=== PATIENT | female | born 1995 | race Caucasian/White ===

== ENCOUNTER 2019-12-20 01:45 | Inpatient (IN) | payer MEDICAID, SELFPAY ==
[2019-12-20] VITALS (98 sets, daily range): BP systolic 0–166; BP diastolic 0–95; PULSE 67–102; RESP 14–19; TEMP 36.6–37.1; O2SAT 94–100; BMI 27.8
[2019-12-20 01:42] LABS: Nitrazine Paper, PH Inconclusive
[2019-12-20 01:42] LABS: Actim Prom Positive
[2019-12-20 02:39] LABS: Basophils % 0.2 %; Eosinophils % 0.4 %; Hematocrit 30.8 % (37.0-47.0); Hemoglobin 9.6 g/dL (11.5-15.3); Lymphocytes # 1.5 10^3/uL (0.8-4.8); Lymphocytes % 16.9 %; Mean Corpuscular HGB Conc 31.2 g/dL (30.0-36.0); Mean Corpuscular Hemoglobin 26.5 pg (28.0-34.0); Mean Corpuscular Volume 85.1 fL (81-99); Monocytes # 0.7 10^3/uL (0.2-0.9); Monocytes % 8.1 %; Neutrophils # 6.57 10^3/uL (1.8-7.7); Neutrophils % 73.3 %; Nucleated Red Blood Cells % 0 %; Platelet Count 162 10^3/cmm (130-400); Red Blood Count 3.62 10^6/uL (4.1-5.3); Red Cell Distribution Width 13.7 % (12.1-15.1)
[2019-12-20 04:06] LABS: Amphetamines Screen Urine Negative (Negative); Barbiturates Screen Urine Negative (Negative); Benzodiazepines Screen Urine Negative (Negative); Cocaine Screen Urine Negative (Negative); Opiate Screen Urine Negative (Negative); PCP Screen Urine Negative (Negative); THC Screen Urine Negative (Negative)
[2019-12-20] MEDS: fentaNYL 50 mcg/mL INJ 2mL IVP ×3 (04:38→08:08)
[2019-12-20] MEDS: miSOPROStol 100 mcg tablet 25 MCG VAGINAL (05:39)
[2019-12-20] MEDS: lactated ringers 1,000 ML 125 ML IV ×2 (06:45→18:25)
--- NOTE | 2019-12-20 08:45 | ANES.PREANE2 ---
Pre-Anesthetic Assessment Pre-Anesthetic Assessment: Height/Weight: Height 1.55 m Weight 66.678 kg Temp Pulse Resp BP Pulse Ox 98.2 F 75 18 115/67 100 12/20/19 01:22 12/20/19 09:42 12/20/19 08:08 12/20/19 09:42 12/20/19 09:22 Preop Diagnosis: IUP Proposed Procedure: epidural Familial anesthetic complications: none Last intake: drinking watqer Social: Social History: No alcohol and No tobacco Exam: Pre-Anes Outpt Exam: alert, oriented x 3, clear to auscultation bilaterally and regular rate & rhythm Airway: Cervical ROM: WNL MP: 2 Dentition: Full Anesthetic Plan: ASA status: 2 Anesthesia: Regional (specify below) Risk of > 500 ml blood loss (7ml/kg in children): No Meds/Allergies Current Medications: Current Medications Generic Name Dose Route Start Last Admin Trade Name Freq PRN Reason Stop Dose Admin Fentanyl 25 - 100 mcg 12/20/19 04:22 12/20/19 08:08 Sublimaze IVP 25 mcg Q1H PRN Administration SEVERE PAIN Lactated Ringer's 1,000 mls @ 125 m ls/hr 12/20/19 02:30 12/20/19 08:15 Lactated Ringers IV 999 mls/hr .Q8H [place] Infusion PFSH Anesthesia Female Reproductive History: : 1 Data Anesthesia CBC & Chem 7: 12/20/19 02:15 Other Labs: Laboratory Results - last 48 hr 12/20/19 12/20/19 12/20/19 01:25 02:00 02:15 WBC 9.0 RBC 3.62 L Hgb 9.6 L Hct 30.8 L MCV 85.1 MCH 26.5 L MCHC 31.2 RDW 13.7 Plt Count 162 MPV 12.0 H Neut % (Auto) 73.3 Lymph % (Auto) 16.9 Robertson % (Auto) 8.1 Eos % (Auto) 0.4 Baso % (Auto) 0.2 Neut # (Auto) 6.57 Lymph # (Auto) 1.5 Robertson # (Auto) 0.7 Eos # (Auto) 0.0 Baso # (Auto) 0.0 Nucleated RBC % (auto) 0 Nucleated RBCs # 0.0 Insulin-like GF I Positive Urine Opiates Screen Negative Ur Barbiturates Screen Negative Ur Phencyclidine Scrn Negative Ur Amphetamines Screen Negative U Benzodiazepines Scrn Negative Urine Cocaine Screen Negative U Marijuana (THC) Screen Negative Cardiac Studies: No Data to Display
[2019-12-20] MEDS: lactated ringers 1,000 ML 999 ML IV (08:50)
--- NOTE | 2019-12-20 09:45 | P.ANES_ITS ---
Anesthesia Procedures Procedure/Date: 12/20/19 Epidural: Time Out Performed: Yes Consents Signed: Procedure Consent, NPO Consent and No Consent Needed Consent: requested by attending/covering physician, from patient, risks and benefits reviewed and patient agrees to proceed Epidural position: sitting Epidural procedure: sterile prep of area, 1% lidocaine to numb the area, 18 g needle, negative for paresthesia passed, neg for paresthesia, test dose given, 1.5% xylocaine 1:200k epi (5 ml (divided doses of 3 ml and 2 ml)), 0.2% Ropivacaine bolus ml (5 ml), placed PCEA , no systemic response, sterile dressing applied, L.U.D. no apparent complications and 0.2% Ropiavacaine @ mls/hr (10) Additional Comments: YAJAIRA at 4.5 cm, threaded to 10 cm.
[2019-12-20] MEDS: dextrose 5%-lactated ringers 1,000 ML 125 ML IV (09:49)
[2019-12-20] MEDS: lactated ringers 1,000 ML 500 ML IV (14:33)
[2019-12-20 17:39] LABS: Coronavirus Lab Test PTC Negative
--- NOTE | 2019-12-20 19:51 | PM.DELIVERY ---
Delivery Note: Date of delivery: December 20, 2019 Pre-Delivery Course: The patient is a 38-week 1 female who presented to the hospital with possible spontaneous rupture of membranes. She had had an unremarkable . She had consistent care. Her blood type is O-. Her GBS status is negative. She was tested with nitrazine and found to be equivocal. She was then tested with an actinPROM and found to be positive. She continued to have contractions. An amniotomy was performed. An epidural was placed. She progressed to complete without difficulty. She is allowed to labor down for over an hour. She then pushed for roughly an hour. Delivery: DELIVERY: The patient progressed to complete without difficulty. She delivered a male with a weight of 7 pounds 0.5 ounces with Apgars of 8, 8. The baby was delivered from the NILE position. The baby's mouth and nose were suctioned at the site of the perineum. The baby was then completely delivered and placed on the mother's abdomen. The cord was then clamped and cut. There was no nuchal cord. There was no meconium. The placenta and 3 vessel cord were delivered intact shortly thereafter. The perineum and vaginal vault were carefully examined. No lacerations were noted. Both the mother and the baby were in stable condition. A&P Assessment and plan (1) 38 weeks gestation of : Anticipate routine care. Status: Acute (2) Spontaneous vaginal delivery: Status: Acute Coding Level of Care Code Acute Transcribing Operator Head for Chg Fwd Diagnoses 38 weeks gestation of Z3A.38 Spontaneous vaginal delivery O80
[2019-12-20] MEDS: lanolin oint 7 gm 1 APPLIC TOPICAL (20:53)
[2019-12-20] MEDS: benzocaine-menthol 78 gm Canister 1 SPRAY TOPICAL (20:54)
[2019-12-20] MEDS: HYDROcodone-acetaminophen 5-325 mg Tablet PO (22:54)
[2019-12-21] VITALS (7 sets, daily range): BP systolic 106–128; BP diastolic 67–84; PULSE 74–93; RESP 14–18; TEMP 36.6–37; O2SAT 97–99
--- NOTE | 2019-12-21 07:06 | PM.OBGYDC ---
Discharge Providers DIRECTOR UNIVERSITY Date of Admission: 12/20/19 01:45 Date of Discharge: 12/25/19 Attending Provider at Admission: Rasta Issa MD Attending Provider at Discharge: Rasta Issa MD Diagnoses at Discharge Discharge Diagnosis (1) 38 weeks gestation of : Status: Acute (2) Spontaneous vaginal delivery: Status: Acute Reason for Visit Reason for Visit: POSS ROM Hospital Course Hospital Course: The patient presented to the hospital with presumed rupture of membranes. Her membranes were confirmed to be ruptured. She progressed to complete and was able to deliver her baby without difficulty. Her pain and bleeding has been within normal limits. She has had some difficulty breast-feeding. The nurses are continuing to work with her. Information Peripartum Data: Infant Delivery Method: Vaginal Physical Exam Narrative: EXAM NARRATIVE: The patient is alert. She appears comfortable. Her heart has a regular rate and rhythm with no murmurs appreciated. Lungs are clear to auscultation bilaterally. Her fundus is firm and below the umbilicus. Urinary Catheter Management^: Reilly: Cath Placed During This Visit: yes Reason for Continuing Indwelling Catheter: Required Immobilization for Trauma or Surgery or Anesthesia Urinary Catheter Date of Insertion: 12/20/19 Urinary Catheter Time of Insertion: 09:58 Discharge Data Data Completed and Pending: Pending at discharge Category Date Time Status Hemagram Timed Lab 12/21/19 07:17 Uncollected Labs from last 24 hours 12/20/19 04:43 Nasal/Oral COVID-1 9 PCR Negative Vitals: Last Vital Signs Temp 98.6 F 12/21/19 05:03 Pulse 86 12/21/19 05:03 Resp 14 12/21/19 05:03 BP 106/84 12/21/19 05:03 Pulse Ox 98 12/21/19 05:03 Discharge Plan Discharge Patient Disposition: Home Condition: Stable Prescriptions: New ibuprofen 800 mg Tablet 800 mg PO TID Qty: 30 RF: 0 Continued Tablet tablet 1 tab PO DAILY RF: 0 Discharge Orders: Discharge Order (Routine); Ordered 12/21/19 Ordered By: Rasta Issa Referrals: Rasta Issa MD [Family Provider] - 01/25/20 11:00 am (Your 6 week appointment has been scheduled for 01/25/2020 at 11:[address] Issa.) Discharge Diet: Usual diet Discharge Activity: Limit activity as instructed Patient Instructions: Vitamins (By mouth), OB Discharge Report, OB Food/Drug Interaction Guide, OB Home Care, OB Proud Parent Packet, OB Vaginal Deliveries Discharge Date/Time: 12/21/19 21:00 Discharge Attestations DIRECTOR UNIVERSITY Time Spent in Discharge Care*: greater than 30 min Coding Level of Care Code Acute Maintenance Mechanic Millwright for Chg Fwd Diagnoses 38 weeks gestation of Z3A.38 Spontaneous vaginal delivery O80
[2019-12-21 08:06] LABS: Hematocrit 32.3 % (37.0-47.0); Mean Corpuscular Hemoglobin 26.5 pg (28.0-34.0); Mean Corpuscular Volume 85.7 fL (81-99); Mean Platelet Volume 12.7 fL (7.4-10.4); Platelet Count 158 10^3/cmm (130-400); Red Blood Count 3.77 10^6/uL (4.1-5.3); Red Cell Distribution Width 13.8 % (12.1-15.1); White Blood Count 14.2 10^3/uL (4.0-10.0)
[2019-12-21] MEDS: prenatal vitamin Capsule 1 CAP PO (08:59)
[2019-12-21] MEDS: docusate sodium 100 mg Capsule PO ×2 (08:59→18:03)
--- NOTE | 2019-12-21 09:47 | ANE.PACU2 ---
Inpatient post-anesthesia follow up: Airway intact: Yes Vital signs: Temperature 98.0 F Pulse Rate 91 Respiratory Rate 16 Blood Pressure 108/78 Pulse Oximetry 98 Oxygen Delivery Me thod Room Air Oxygen Flow Rate Fraction of Inspir ed Oxygen Hydration adequate: Yes Nausea and vomiting: No Pain level: 1 Mental status: Baseline Additional Comments: No signs of infection at epidural site, no numbness/weakness of lower extremities, no trouble urinating, no headaches
== END 2019-12-21 21:00 | disposition home or self-care (01) | DRG 807 ==
LOC: OBGYN 12-21 07:10 → OPOB 12-22 08:19
PROVIDERS: Admitting Provider Family Medicine; Family Provider Family Medicine; Visit Provider Family Medicine
DX: O42.02 Full-term premature rupture of membranes, onset of labor within 24 hours of rupture (principal); Z37.0 Single live birth; Z3A.38 38 weeks gestation of pregnancy
CPT/HCPCS: 12345; 36415; 51702; 59025; 59409; 80306; 83986; 84112; 85025; 85027; 87635; 96375; 98960; 99211; J2795; J3010

== ENCOUNTER 2021-07-11 13:26 | Emergency (ER) | payer BC, MEDICAID, SELFPAY ==
[2021-07-11 13:34] VITALS: BP 121/78; PULSE 84; RESP 18; TEMP 36.6; O2SAT 100; BMI 18.3
--- NOTE | 2021-07-11 13:41 | W.ED.HA ---
Documented by User: SOUTH Mckoy 07/12/21 07:06 HPI - Headache General: Chief Complaint: Headache Stated Complaint: sent to ER per [facility] Time Seen by Provider: 07/11/21 13:40 History of Present Illness: Patient is a 26-year-old female comes to the ED with a headache. Patient has a history of migraines. She was seen at [facility] earlier today and they sent her here to the ED to be evaluated. says this migraine is worse than any past migraines she has had. It started approximately 9 days ago. Headache starts on left side of head right behind her left eye and then radiates down the left side of her head into the back of her head. Endorses having some nausea and lights worsened headache She rates her current migraine a 4 out of 10 but says it has episodes when it spikes up and pain is a lot worse. Denies any neurological symptoms, vision changes or any weakness to extremities. Associated symptoms: Reports nausea; Deny chest pain, fever(s), rash or vomiting Review of Systems Const: Denies: fever(s), chills or fatigue Eyes: Reports: photophobia; Denies: change in vision or eye discomfort ENMT: Denies: throat pain, odynophagia, nasal discharge or nasal congestion Card: Denies: chest pain, palpitations, edema, swelling of feet/ankles, dyspnea on exertion or orthopnea Resp: Denies: dyspnea, productive cough or non-productive cough GI: Reports: nausea; Denies: abdominal pain, vomiting, diarrhea, constipation or hematochezia : Denies: flank pain, dysuria or hematuria Musc: Denies: neck pain, back pain or extremity swelling Skin/Breast: Denies: rash or new lesions Neuro: Reports: headache(s); Denies: numbness in extremities or weakness in extremities PFS ED PFSH: Medical History Migraine No pertinent family history Surgical History No pertinent past surgical history Physical Exam Const: COMMON NORMALS: no acute distress, patient oriented x3 and alert GENERAL APPEARANCE: cooperative HENMT: COMMON NORMALS: normocephalic HEAD & SCALP: normocephalic MOUTH: Normal oral and palatal mucosa present THROAT: posterior oropharynx normal and uvula midline Neck/C-Spine: COMMON NORMALS: supple GENERAL: Yes normal visual inspection Resp: COMMON NORMALS: normal respiratory effort, No retractions, No use of accessory muscles and clear to auscultation bilaterally AUSCULTATION: clear to auscultation bilaterally Cardio: COMMON NORMALS: regular rate, regular rhythm, S1 normal heart sound present, S2 normal heart sound present, No gallops present (Cardio), No clicks present (Cardio), No murmurs present (Cardio) and Peripheral pulses 2+ throughout RATE: regular rate RHYTHM: regular rhythm HEART SOUNDS: S1 normal heart sound present and S2 normal heart sound present PERIPHERAL PULSES: Peripheral pulses 2+ throughout GI: COMMON NORMALS: Normal to inspection, nondistended, normoactive bowel sounds present, Soft to palpation, non-tender and no masses PALPATION: Yes Soft to palpation : COMMON NORMALS: Yes no CVA tenderness BLADDER/KIDNEY EXAM: Yes no CVA tenderness Back/Pelvis: COMMON NORMALS: no CVA tenderness Extremity: COMMON NORMALS: normal to inspection Neuro: COMMON NORMALS: patient oriented x3, CN's II-XII intact bilaterally, moves all extremities, no focal motor deficits and no sensory deficits noted SENSORIUM/ORIENTATION: Yes alert SENSORY EXAM: Yes extremities (intact) MOTOR EXAM: 5/5 motor strength present throughout Skin: GENERAL SKIN EXAM: dry skin Course Vital Signs: Vital signs: Vital Signs Temperature 97.9 F 07/11/21 13:34 Pulse Rate 84 07/11/21 14:15 Respiratory Rate 16 07/11/21 14:15 Blood Pressure 121/78 07/11/21 14:15 Pulse Oximetry 100 07/11/21 14:15 MDM - Headache Lab Data I reviewed the patient's lab results. : 07/11/21 15:20 07/11/21 15:[address] 07/11/21 13:57 IMPRESSION: No acute intracranial abnormality. Laboratory Results WBC 4.8 10^3/uL (4.0-10.0) 07/11/21 15:20 RBC 3.85 10^6/uL (4.1-5.3) L 07/11/21 15:20 Hgb 11.1 g/dL (11.5-15.3) L 07/11/21 15:20 Hct 34.6 % (37.0-47.0) L 07/11/21 15:20 MCV 89.9 fl (81-99) 07/11/21 15:20 MCH 28.8 pg (28.0-34.0) 07/11/21 15:20 MCHC 32.1 g/dL (30.0-36.0) 07/11/21 15:20 RDW 12.9 % (12.1-15.1) 07/11/21 15:20 Plt Count 142 10^3/cmm (130-400) 07/11/21 15:20 MPV 10.9 fL (7.4-10.4) H 07/11/21 15:20 Neut % (Auto) 56.4 % 07/11/21 15:20 Lymph % (Auto) 36.2 % 07/11/21 15:20 Chester % (Auto) 5.8 % 07/11/21 15:20 Eos % (Auto) 0.8 % 07/11/21 15:20 Baso % (Auto) 0.6 % 07/11/21 15:20 Neut # (Auto) 2.71 10^3/uL (1.8-7.7) 07/11/21 15:20 Lymph # (Auto) 1.7 10^3/uL (0.8-4.8) 07/11/21 15:20 Chester # (Auto) 0.3 10^3/uL (0.2-0.9) 07/11/21 15:20 Eos # (Auto) 0.0 10^3/uL (0.0-0.8) 07/11/21 15:20 Baso # (Auto) 0.0 10^3/uL (0.0-0.1) 07/11/21 15:20 Nucleated RBC % (auto) 0 % 07/11/21 15:20 Nucleated RBCs # 0.0 /100WBC 07/11/21 15:20 Sodium 139 mmol/L (136-145) 07/11/21 15:20 Potassium 3.2 mmol/L (3.5-5.1) L 07/11/21 15:20 Chloride 108 mmol/L (98-107) H 07/11/21 15:20 Carbon Dioxide 21 mmol/L (22-29) L 07/11/21 15:20 Anion Gap 13.2 (5-19) 07/11/21 15:20 BUN 9 mg/dL (6-20) 07/11/21 15:20 Creatinine 0.7 mg/dL (0.5-0.9) 07/11/21 15:20 GFR Calculation 99.6 mL/min (90-130) 07/11/21 15:20 Glucose 94 mg/dL (65-115) 07/11/21 15:20 Calculated Osmolality 286 mOsm/kg (285-295) 07/11/21 15:20 Calcium 8.8 mg/dL (8.5-10.5) 07/11/21 15:20 HCG, Qual Negative (Negative) 07/11/21 15:20 Discharge Plan Discharge Patient Disposition: Home Clinical Impression: Migraine Qualifiers: Migraine type: without aura Status migrainosus presence: without status migrainosus Intractability: not intractable Qualified Code(s): G43.009 - Migraine without aura, not intractable, without status migrainosus Condition: Stable Prescriptions: No Action Tablet tablet 1 tab PO DAILY 0RF ibuprofen 800 mg Tablet 800 mg PO TID Qty: 30 0RF Discharge Orders: Discharge ED (Routine); Ordered 07/11/21 Ordered By: Marshal Rowan Referrals: Rasta Issa MD [Primary Care Provider] - Discharge Diet: Regular Discharge Activity: Increase activity as tolerated Patient Instructions: Migraine Headache (ED) Activity Restrictions/Additional Instructions: Follow-up with medical provider as directed. Take medications as prescribed. Return to the ER or your medical provider if condition worsens. Please read and understand discharge instructions. Thank you for choosing [facility] for your healthcare needs today. Please realize this is an emergency room and that we are providing you with a medical screening exam and this may not be complete and all inclusive of all the testing and or work up that you may need to determine your ailment or severity of your illness. It is very important that you follow up as instructed or that you return to the Emergency Department should you have concerns or if your condition changes or worsens in any way. Sign Out Sign Out Data: Patient Sign Out occurred on 07/11/21 at 17:07. Patient's care was discussed, and care was transferred from to Marshal Rowan. Coding Level of Care Code ED Sewage Disposal Worker for Chg Fwd Exam Comprehensive Documented by User: CHRISTINE Dominguez 07/11/21 17:33 HPI - Headache General: Chief Complaint: Headache Stated Complaint: sent to ER per [facility] Time Seen by Provider: 07/11/21 13:40 PFS ED PFSH: Medical History Migraine No pertinent family history Surgical History No pertinent past surgical history Course Vital Signs: Vital signs: Vital Signs Temperature 97.9 F 07/11/21 13:34 Pulse Rate 84 07/11/21 14:15 Respiratory Rate 16 07/11/21 14:15 Blood Pressure 121/78 07/11/21 14:15 Pulse Oximetry 100 07/11/21 14:15 MDM - Headache Medical Decision Making 26-year-old female comes in today with complaints of migraine headache. Patient has a history of migraine headaches. Patient has had a persistent headache for about 9 days. Patient was referred to ER for further evaluation from [facility] clinic. On exam no focal neurodeficits. Patient does appear to be in mild to moderate pain. Vital signs were normal. Normal range of motion of the neck was noted. Differential diagnosis includes migraine headache, intracranial mass, tension headache. CT of the head was negative for any of abnormality. Patient did have improvement of symptoms after headache cocktail. Patient will follow up with primary care for further instruction. Lab Data : 07/11/21 15:20 07/11/21 15:[address] 07/11/21 13:57 IMPRESSION: No acute intracranial abnormality. Laboratory Results WBC 4.8 10^3/uL (4.0-10.0) 07/11/21 15:20 RBC 3.85 10^6/uL (4.1-5.3) L 07/11/21 15:20 Hgb 11.1 g/dL (11.5-15.3) L 07/11/21 15:20 Hct 34.6 % (37.0-47.0) L 07/11/21 15:20 MCV 89.9 fl (81-99) 07/11/21 15:20 MCH 28.8 pg (28.0-34.0) 07/11/21 15:20 MCHC 32.1 g/dL (30.0-36.0) 07/11/21 15:20 RDW 12.9 % (12.1-15.1) 07/11/21 15:20 Plt Count 142 10^3/cmm (130-400) 07/11/21 15:20 MPV 10.9 fL (7.4-10.4) H 07/11/21 15:20 Neut % (Auto) 56.4 % 07/11/21 15:20 Lymph % (Auto) 36.2 % 07/11/21 15:20 Chester % (Auto) 5.8 % 07/11/21 15:20 Eos % (Auto) 0.8 % 07/11/21 15:20 Baso % (Auto) 0.6 % 07/11/21 15:20 Neut # (Auto) 2.71 10^3/uL (1.8-7.7) 07/11/21 15:20 Lymph # (Auto) 1.7 10^3/uL (0.8-4.8) 07/11/21 15:20 Chester # (Auto) 0.3 10^3/uL (0.2-0.9) 07/11/21 15:20 Eos # (Auto) 0.0 10^3/uL (0.0-0.8) 07/11/21 15:20 Baso # (Auto) 0.0 10^3/uL (0.0-0.1) 07/11/21 15:20 Nucleated RBC % (auto) 0 % 07/11/21 15:20 Nucleated RBCs # 0.0 /100WBC 07/11/21 15:20 Sodium 139 mmol/L (136-145) 07/11/21 15:20 Potassium 3.2 mmol/L (3.5-5.1) L 07/11/21 15:20 Chloride 108 mmol/L (98-107) H 04/20/22 15:20 Carbon Dioxide 21 mmol/L (22-29) L 07/11/21 15:20 Anion Gap 13.2 (5-19) 07/11/21 15:20 BUN 9 mg/dL (6-20) 07/11/21 15:20 Creatinine 0.7 mg/dL (0.5-0.9) 07/11/21 15:20 GFR Calculation 99.6 mL/min (90-130) 07/11/21 15:20 Glucose 94 mg/dL (65-115) 07/11/21 15:20 Calculated Osmolality 286 mOsm/kg (285-295) 07/11/21 15:20 Calcium 8.8 mg/dL (8.5-10.5) 07/11/21 15:20 HCG, Qual Negative (Negative) 07/11/21 15:20 Discharge Plan Discharge Patient Disposition: Home Clinical Impression: Migraine Qualifiers: Migraine type: without aura Status migrainosus presence: without status migrainosus Intractability: not intractable Qualified Code(s): G43.009 - Migraine without aura, not intractable, without status migrainosus Condition: Stable Prescriptions: No Action Tablet tablet 1 tab PO DAILY 0RF ibuprofen 800 mg Tablet 800 mg PO TID Qty: 30 0RF Discharge Orders: Discharge ED (Routine); Ordered 07/11/21 Ordered By: Marshal Rowan Referrals: Rasta Issa MD [Primary Care Provider] - Discharge Diet: Regular Discharge Activity: Increase activity as tolerated Patient Instructions: Migraine Headache (ED) Activity Restrictions/Additional Instructions: Follow-up with medical provider as directed. Take medications as prescribed. Return to the ER or your medical provider if condition worsens. Please read and understand discharge instructions. Thank you for choosing [facility] for your healthcare needs today. Please realize this is an emergency room and that we are providing you with a medical screening exam and this may not be complete and all inclusive of all the testing and or work up that you may need to determine your ailment or severity of your illness. It is very important that you follow up as instructed or that you return to the Emergency Department should you have concerns or if your condition changes or worsens in any way. Sign Out Sign Out Data: Patient Sign Out occurred on 07/11/21 at 17:07. Patient's care was discussed, and care was transferred from to Marshal Rowan. Coding Level of Care Code ED Sewage Disposal Worker for Chg Fwd Exam Comprehensive
--- NOTE | 2021-07-11 13:57 | CTR_ITS ---
PROCEDURE INFORMATION: Exam: CT Head Without Contrast Exam date and time: 07/11/2021 4:42 PM Age: 26 years old Clinical indication: Pain; Headache; Additional info: Worst migraine she has ever had. TECHNIQUE: Imaging protocol: Computed tomography of the head without contrast. Radiation optimization: All CT scans at this facility use at least one of these dose optimization techniques: automated exposure control; mA and/or kV adjustment per patient size (includes targeted exams where dose is matched to clinical indication); or iterative reconstruction. COMPARISON: No relevant prior studies available. RADIATION DOSE METRICS: Total DLP (mGy-cm): 651.73 FINDINGS: Brain: Normal. No hemorrhage. Unremarkable white matter. No mass effect. Cerebral ventricles: No ventriculomegaly. Paranasal sinuses: Visualized sinuses are unremarkable. No fluid levels. Mastoid air cells: Visualized mastoid air cells are well aerated. Bones/joints: Unremarkable. No acute fracture. Soft tissues: Unremarkable. CT/CT head wo con* [id number] IMPRESSION: No acute intracranial abnormality.
[2021-07-11 14:15] VITALS: BP 121/78; PULSE 84; RESP 16; O2SAT 100
[2021-07-11] MEDS: metoclopramide 5 mg/mL SDV 2 mL 10 MG IVP (14:28)
[2021-07-11] MEDS: ketorolac 30 mg/mL INJ IVP (14:30)
[2021-07-11] MEDS: diphenhydrAMINE 50 mg/mL SDV 1mL 25 MG IVP (14:30)
[2021-07-11] MEDS: sodium chloride 0.9% 500 ML 999 ML IV (14:31)
[2021-07-11] MEDS: dexamethasone 10 mg/mL INJ IVP (14:31)
--- NOTE | 2021-07-11 15:13 | DCPLANNER ---
Addendum entered by Radhika Hester 11/16/21 12:34: charted wrong - patient did not attend appointment. Addendum entered by Radhika Hester 11/16/21 12:33: Patient had a follow up appointment scheduled for 11.14.21 with neurology - patient did attend appointment. Addendum entered by Radhika Hester 07/17/21 08:16: Patient has a follow up appointment scheduled for Sunday, November 14, 2021 at 12:[address] Rogers. Clinic will call patient with appointment information. Original Note: manager investment had message to schedule a follow up appointment for patient with neurology. manager investment sent patients information to the front staff at neurology. Patients information will be printed and reviewed. Clinic will call patient with appointment information.
[2021-07-11 15:26] LABS: Basophils % 0.6 %; Eosinophils % 0.8 %; Hematocrit 34.6 % (37.0-47.0); Hemoglobin 11.1 g/dL (11.5-15.3); Lymphocytes # 1.7 10^3/uL (0.8-4.8); Lymphocytes % 36.2 %; Mean Corpuscular HGB Conc 32.1 g/dL (30.0-36.0); Mean Corpuscular Hemoglobin 28.8 pg (28.0-34.0); Mean Corpuscular Volume 89.9 fl (81-99); Mean Platelet Volume 10.9 fL (7.4-10.4); Monocytes # 0.3 10^3/uL (0.2-0.9); Monocytes % 5.8 %; Neutrophils # 2.71 10^3/uL (1.8-7.7); Neutrophils % 56.4 %; Nucleated Red Blood Cells % 0 %; Platelet Count 142 10^3/cmm (130-400); Red Blood Count 3.85 10^6/uL (4.1-5.3); Red Cell Distribution Width 12.9 % (12.1-15.1); White Blood Count 4.8 10^3/uL (4.0-10.0)
[2021-07-11 15:50] LABS: Anion Gap 13.2 (5-19); Blood Urea Nitrogen 9 mg/dL (6-20); Calcium 8.8 mg/dL (8.5-10.5); Carbon Dioxide 21 mmol/L (22-29); Chloride 108 mmol/L (98-107); Glomerular Filtration Rate 99.6 mL/min (90-130); Glucose 94 mg/dL (65-115); Osmolality Calculated 286 mOsm/kg (285-295); Potassium 3.2 mmol/L (3.5-5.1); Sodium 139 mmol/L (136-145)
[2021-07-11 16:03] LABS: HCG, Serum Qual Negative (Negative)
== END 2021-07-11 17:42 | disposition home or self-care (01) ==
PROVIDERS: Physician Assistant; Emergency Provider Nurse Practitioner Family; PCP Family Medicine
DX: G43.009 Migraine without aura, not intractable, without status migrainosus (principal)
CPT/HCPCS: 70450; 80048; 84703; 85025; 96374; 96375; 99283; J1100; J1200; J1885; J2765; J7040

== ENCOUNTER 2023-09-26 15:35 | Emergency (ER) | payer MEDICAID, SELFPAY ==
[2023-09-26 15:43] VITALS: BP 116/70; PULSE 67; RESP 14; TEMP 37.1; O2SAT 100; BMI 19.8
[2023-09-26 16:07] LABS: Basophils % 0.2 %; Eosinophils % 0.1 %; Hematocrit 38.3 % (36-47); Lymphocytes # 1.2 10^3/uL (0.8-4.8); Lymphocytes % 12.7 %; Mean Corpuscular HGB Conc 33.4 g/dL (30-55); Mean Corpuscular Hemoglobin 29.3 pg (27-33); Mean Corpuscular Volume 87.6 fl (85-98); Mean Platelet Volume 10.8 fL (7.4-10.4); Monocytes # 0.4 10^3/uL (0.2-0.9); Monocytes % 4.8 %; Neutrophils # 7.53 10^3/uL (1.8-7.7); Neutrophils % 81.8 %; Nucleated Red Blood Cells % 0 %; Platelet Count 166 10^3/cmm (157-399); Red Blood Count 4.37 10^6/uL (3.85-5.65); Red Cell Distribution Width 13.2 % (12.1-15.1); White Blood Count 9.21 10^3/uL (3.29-11.43)
--- NOTE | 2023-09-26 17:44 | USR_ITS ---
PROCEDURE INFORMATION: Exam: US First Trimester, Transabdominal and US , Transvaginal Exam date and time: 09/26/2023 6:21 PM Age: 28 years old Clinical indication: Lmp or gestational age (in weeks): 8w0d; Antepartum complications; Bleeding; ; Additional info: Cramping/spotting LABS AND CLINICAL REPORTS: Last menstrual period start date: 07/28/2023 Gestational age (Established): 8 w 4 d Estimated due date (Established): 05/03/2024 TECHNIQUE: Imaging protocol: Real-time transabdominal obstetrical ultrasound of the maternal pelvis and a first trimester , less than 14 weeks 0 days, with image documentation. Transvaginal imaging was used for better evaluation of the fetus, adnexa, and/or cervix. COMPARISON: No relevant prior studies available. FINDINGS: GESTATION: Gestation: Yolk sac measures 3.7 mm. Single, viable intrauterine gestation. Embryonic/ heart rate: 180 bpm Extra-embryonic membranes/Placenta: Small, 7 x 4 x 5 mm subchorionic hemorrhage. Amniotic/Chorionic fluid: Amount of amniotic fluid is subjectively normal for this stage of . BIOMETRY: Gestational age (AUA): See [place] rump length (CRL) finding. [place] rump length (CRL): Mean crown-rump length (CRL) is 1.63 cm. This corresponds to an estimated gestational age (EGA) of 8 weeks 0 days. MATERNAL: Uterus: Unremarkable. Cervix: The cervix is unremarkable. There is no shortening or effacement. The cervix measures 3.5 cm using a transvaginal measurement. Right ovary/adnexa: The right ovary measures 1.8 x 1.4 x 1.6 cm. Multiple subcentimeter follicles in the right ovary. Left ovary/adnexa: The left ovary measures 2.0 x 2.0 x 3.2 cm. Multiple subcentimeter follicles in the left ovary. 1.9 x 1.6 x 2.6 cm corpus luteum cyst in the left ovary. Intraperitoneal space: No free fluid in the pelvis. Vasculature: Normal arterial and venous waveforms on Doppler imaging in the left ovary. Normal arterial and venous waveforms on Doppler imaging in the right ovary. US/US OB <=14 wk fetus w transvag IMPRESSION: 1. Single, viable intrauterine gestation. Estimated gestational age of 8 weeks 0 days by ultrasound. Estimated delivery date by ultrasound is 05/07/2024. 2. Small, 7 x 4 x 5 mm subchorionic hemorrhage. 3. 1.9 x 1.6 x 2.6 cm corpus luteum cyst in the left ovary. 4. Incidental/nonacute findings are listed in the report.
--- NOTE | 2023-09-26 18:19 | ED_ITS ---
HPI - 2 General: Chief complaint: Vaginal Bleeding Stated complaint: early pregnacy, red discharge, cramping Time Seen by Provider: 09/26/23 17:36 Source: patient Mode of arrival: ambulatory Limitations: no limitations History of Present Illness: Patient is a 28-year-old female who is G2, at approximately 8-10 weeks by last normal menstrual period who presents to the emergency department complaining of bleeding vaginally today. Patient states she has had a scant amount of blood-tinged discharge, that is equivalent to spotting. She does note that for the past few weeks she has had cramping to her bilateral lower abdominal quadrants with extension into the back. She states that her first went without any complications at all, and that she is concerned about having the cramping and bleeding with this . She is not scheduled to see OB until later this month. She has not been having any palpitations, syncopal episodes, no history of ectopic , no other pertinent historical factors or symptoms noted at this time. MD Complaint: vaginal bleeding Onset (ago): hour(s) Pain Consistency: constant Severity: mild Date of Last Menstrual Period: 07/28/23 Patient : Yes Associated symptoms: Deny abdominal pain, dysuria, headache(s), nausea or vomiting Related Data: : 2 Para: 1 Total number of abortions (spontaneous and elective): 0 Review of Systems 2 General: Reports: 10 or more systems reviewed and unremarkable except in HPI and below Const: Denies: fever(s), chills, change in appetite, change in weight or diaphoresis ENMT: Denies: throat pain or hoarseness Card: Denies: chest pain, palpitations or lightheadedness Resp: Denies: dyspnea, productive cough or wheezing GI: Reports: GI cramping; Denies: abdominal pain, nausea, vomiting, diarrhea, constipation, bloating, change in stool character or hematochezia : Reports: vaginal bleeding and other (); Denies: flank pain, difficulty voiding, dysuria, urinary frequency or urinary urgency Musc: Reports: back pain; Denies: neck pain Skin/Breast: Denies: rash or new lesions Neuro: Denies: headache(s) or dizziness PFS ED 2 PFSH: Medical History Migraine No pertinent family history Surgical History No pertinent past surgical history Female Reproductive History: Date of last menstrual period: 07/28/23 G ravida: 2 Physical Exam 2 Const: COMMON NORMALS: no acute distress, average body habitus, patient oriented x3, no limitations, healthy appearing, alert and well nourished G ENERAL APPEARANCE: cooperative and comfortable ORIENTATION/CONSCIOUSNESS: Yes awake HENMT: COMMON NORMALS: normocephalic, atraumatic, hearing grossly normal bilaterally, external ears normal, Normal external nose present, Normal nasal mucous membranes and turbinates present and moist oral mucous membranes HEAD & SCALP: normocephalic and atraumatic NOSE: Normal external nose present and Normal nasal mucous membranes and turbinates present EXTERNAL EAR: Yes external ears normal Eye: COMMON NORMALS: Equal, round and reactive pupils present, EOMs intact bilaterally, conjunctivae normal and normal visual house by confrontation C ONJUNCTIVA: Yes conjunctivae normal PUPIL: Yes Equal, round and reactive pupils present Neck/C-Spine: COMMON NORMALS: full ROM, supple, no meningeal signs and no JVD Resp: COMMON NORMALS: normal respiratory effort, No retractions, No use of accessory muscles and clear to auscultation bilaterally AUSCULTATION: clear to auscultation bilaterally, no crackles, no rales, no rhonchi and no wheezes Cardio: COMMON NORMALS: no JVD, regular rate, regular rhythm, S1 normal heart sound present, S2 normal heart sound present, No gallops present (Cardio), No clicks present (Cardio), No murmurs present (Cardio), No rub (Cardio) and Peripheral pulses 2+ throughout RATE: regular rate RHYTHM: regular rhythm HEART SOUNDS: S1 normal heart sound present and S2 normal heart sound present PERIPHERAL PULSES: Peripheral pulses 2+ throughout GI: COMMON NORMALS: Normal to inspection, nondistended, normoactive bowel sounds present, Soft to palpation, non-tender, No hepatosplenomegaly present and no masses AUSCULTATION: Yes normoactive bowel sounds PALPATION: Yes Soft to palpation, No Guarding due to palpation present (GI), No Rigid due to palpation and Yes No hepatosplenomegaly present RECTAL EXAM: deferred : COMMON NORMALS: Yes no CVA tenderness BLADDER/KIDNEY EXAM: Yes no CVA tenderness Back/Pelvis: COMMON NORMALS: no CVA tenderness Extremity: COMMON NORMALS: normal to inspection and full ROM Neuro: COMMON NORMALS: patient oriented x3, moves all extremities, no focal motor deficits and no sensory deficits noted SENSORIUM/ORIENTATION: Yes alert MENINGEAL SIGNS: Yes no meningeal signs Psych: COMMON NORMALS: mental status grossly normal, cooperative and speech normal SPEECH: Yes normal speech Skin: COMMON NORMALS: no rashes or lesions noted GENERAL SKIN EXAM: no rashes or lesions noted Course 2 Vital Signs: Vital signs: Vital Signs Temperature 98.8 F 09/26/23 15:43 Pulse Rate 67 09/26/23 15:43 Respiratory Rate 14 09/26/23 15:43 Blood Pressure 116/70 09/26/23 15:43 Pulse Oximetry 100 09/26/23 15:43 MDM - OB/Uterine Contractions Medical Decision Making Patient presented for 1 day of scant vaginal bleeding during . Unknown how many weeks gestation she is based on last normal menstrual period however she appears to be 8-10 weeks. Her lab work was unremarkable as there were no signs of anemia or infection. Ultrasound did confirm an intrauterine gestation with normal heart tones, no ectopic or torsion or other emergent findings found. Her physical examination was normal as well. Vitals normal. Due to these nonemergent findings and clinical stability she is to follow-up with Dr. Issa as already scheduled. Reasons return were discussed and she will continue her prepartum care. Lab Data 09/26/23 16:01 Radiology Impressions Obstetrics Ultrasound 09/26/23 17:44 IMPRESSION: 1. Single, viable intrauterine gestation. Estimated gestational age of 8 weeks 0 days by ultrasound. Estimated delivery date by ultrasound is 05/07/2024. 2. Small, 7 x 4 x 5 mm subchorionic hemorrhage. 3. 1.9 x 1.6 x 2.6 cm corpus luteum cyst in the left ovary. 4. Incidental/nonacute findings are listed in the report. Laboratory Results WBC 9.21 10^3/uL (3.29-11.43) 09/26/23 16:01 RBC 4.37 10^6/uL (3.85-5.65) 09/26/23 16:01 Hgb 12.80 g/dL (11.27-16.99) 09/26/23 16:01 Hct 38.3 % (36-47) 09/26/23 16:01 MCV 87.6 fl (85-98) 09/26/23 16:01 MCH 29.3 pg (27-33) 09/26/23 16:01 MCHC 33.4 g/dL (30-55) 09/26/23 16:01 RDW 13.2 % (12.1-15.1) 09/26/23 16: Plt Count 166 10^3/cmm (157-399) 09/26/23 16:01 MPV 10.8 fL (7.4-10.4) H 09/26/23 16:01 Neut % (Auto) 81.8 % 09/26/23 16: Lymph % (Auto) 12.7 % 09/26/23 16: [place] % (Auto) 4.8 % 09/26/23 16: Eos % (Auto) 0.1 % 09/26/23 16: Baso % (Auto) 0.2 % 09/26/23 16: Neut # (Auto) 7.53 10^3/uL (1.8-7.7) 09/26/23 16:01 Lymph # (Auto) 1.2 10^3/uL (0.8-4.8) 09/26/23 16:01 [place] # (Auto) 0.4 10^3/uL (0.2-0.9) 09/26/23 16:01 Eos # (Auto) 0.0 10^3/uL (0.0-0.8) 09/26/23 16: Baso # (Auto) 0.0 10^3/uL (0.0-0.1) 09/26/23 16:01 Nucleated RBC % (auto) 0 % 09/26/23 16: Nucleated RBCs # 0.0 /100WBC 09/26/23 16: Ser , Semi-Qnt 81719.00 mIU/mL 09/26/23 16:01 Blood Type O Negative 09/26/23 16:01 Rho(D) Type Rh negative 09/26/23 16: Antibody Screen Negative 09/26/23 16:01 All radiology interpretation(s) finalized by discharge Discharge Plan Discharge Patient Disposition: Home Clinical Impression: Vaginal bleeding during , 8 weeks gestation of Condition: Stable Prescriptions: No Action amitriptyline 25 mg tablet 25 mg PO DAILY Qty: 90 3RF Nurtec ODT 75 mg tablet,disintegrating 75 mg PO ONCE Qty: 10 3RF rizatriptan 10 mg tablet 10 mg PO Q2H PRN (Reason: migraine headache) Qty: 10 3RF Rx Instructions: do not exceed 3 doses per 24 hrs Tablet tablet 1 tab PO DAILY ibuprofen 800 mg Tablet 800 mg PO TID Qty: 30 0RF Discharge Orders: Discharge ED (Routine); Ordered 09/26/23 Ordered By: Landon Hare Referrals: Rasta Issa MD [Primary Care Provider] - Discharge Diet: Usual diet Discharge Activity: Increase activity as tolerated Patient Instructions: Opioid Safety, Pain Management Activity Restrictions/Additional Instructions: Follow-up with Dr. Issa as discussed. Return with any worsening of bleeding, worsening of pain, or other concerning symptoms may have. Coding Level of Care Code ED Jazz Musician for Josiah Ibarra
== END 2023-09-26 20:01 | disposition home or self-care (01) ==
PROVIDERS: Emergency Medicine; Emergency Provider Physician Assistant; PCP Family Medicine
DX: O46.91 Antepartum hemorrhage, unspecified, first trimester (principal); Z3A.08 8 weeks gestation of pregnancy; Z79.899 Other long term (current) drug therapy
CPT/HCPCS: 36415; 76801; 76817; 84702; 85025; 86850; 86900; 99284

== ENCOUNTER 2023-12-01 06:00 | Outpatient (CLI) | payer BC, MEDICAID, SELFPAY ==
--- NOTE | 2023-12-01 | USR_ITS ---
PROCEDURE INFORMATION: Exam: US After First Trimester, Transabdominal Exam date and time: 12/01/2023 9:51 AM Age: 28 years old Clinical indication: Screening exam; Routine US, uterus; Additional info: Normal in multigravida TECHNIQUE: Imaging protocol: Real-time transabdominal obstetrical ultrasound of the maternal pelvis and a second or third trimester with image documentation. COMPARISON: US OB <=14 wk fetus w transvag 09/26/2023 6:21 PM FINDINGS: Gestation: Single live intrauterine gestation. heart rate: 138 bpm. presentation and position: Breech presentation. Placenta: Unremarkable. No subchorionic bleed. Placenta is posterior. Amniotic fluid (Qualitative): Amniotic fluid is normal for gestational age. Amniotic fluid index: MIQUEL ANATOMY: midline falx: Normal/abnormal/Obscuredbyposition cerebellum: Normal lateral ventricles: Normal cisterna magna: Normal choroid plexus: Normal/abnormal/Obscuredbyposition face: Upper lip is normal heart four-chamber view, heart size and position: Normal heart right ventricular outflow tract: Normal heart left ventricular outflow tract: Normal kidneys: Normal stomach: Normal urinary bladder: Normal spine: Normal Umbilical cord and insertion: Normal. 3 cord insertion. upper limbs: Normal lower limbs: Normal external genitalia: Normal. Male. BIOMETRY: Gestational age (AUA): 18 weeks and 1 day Estimated due date (AUA): 05/02/2024 Estimated weight: 8 oz Biparietal diameter (BPD): 4.09 cm, consistent with estimated gestational age of 18 weeks and 3 days. Head circumference (HC): 14.91 cm . Eighteen weeks and 0 days. Abdominal circumference (AC): 12.69 cm . Eighteen weeks and 2 days. Femur length (FL): 2.62 cm . Eighteen weeks and 0 days. MATERNAL: Uterus: Unremarkable. Cervix: Unremarkable. Cervix is closed. Measures 3.4 cm in length. Right ovary/adnexa: Obscured by lack of adequate acoustic window. Left ovary/adnexa: Obscured by lack of adequate acoustic window. Intraperitoneal space: No intraperitoneal free fluid. Other findings: Ovaries and adnexa were not imaged. US/US OB >= 14 weeks fetus [id number] IMPRESSION: Single live intrauterine gestation. Estimated gestational age of 18 weeks and 1 day. Estimated due date of 05/02/2024. No acute abnormality.
== END 2023-12-01 06:01 | disposition home or self-care (01) ==
LOC: RADOUTREAD 12-02 06:14
PROVIDERS: PCP Family Medicine; Visit Provider Family Medicine
DX: Z34.82 Encounter for supervision of other normal pregnancy, second trimester (principal)

== ENCOUNTER 2024-01-28 16:07 | Oncology outpatient (recurring) (ONCR) | payer BC, MEDICAID, SELFPAY ==
[2024-01-28] MEDS: rho(d) immune globulin 1,500 unit Syringe 1500 UNIT IM (16:19)
== END 2024-02-21 23:59 | disposition home or self-care (01) ==
PROVIDERS: PCP Family Medicine; Visit Provider Family Medicine
DX: Z79.899 Other long term (current) drug therapy (principal); Z67.91 Unspecified blood type, Rh negative; Z53.9 Procedure and treatment not carried out, unspecified reason
CPT/HCPCS: 96372; J2790

== ENCOUNTER 2024-04-17 23:32 | Outpatient (CLI) | payer BC, MEDICAID, SELFPAY ==
[2024-04-17 23:34] VITALS: BMI 28.9
[2024-04-17 23:36] VITALS: BP 127/73; PULSE 86
[2024-04-17 23:54] VITALS: BP 127/77; PULSE 73
[2024-04-18 00:07] VITALS: BP 129/71; PULSE 70; TEMP 36.7
--- NOTE | 2024-04-18 00:11 | PC.NURSE ---
pt refused cervical exam. states she cannot tolerate it while in so much pain.
[2024-04-18 00:16] VITALS: BP 129/71; PULSE 70; RESP 16; TEMP 36.7; O2SAT 100
== END 2024-04-18 00:16 | disposition home or self-care (01) ==
LOC: OPOB 23:33 → OBGYN 23:34
PROVIDERS: PCP Family Medicine; Visit Provider Family Medicine
DX: O26.899 Other specified pregnancy related conditions, unspecified trimester (principal); Z3A.00 Weeks of gestation of pregnancy not specified; R51.9 Headache, unspecified
CPT/HCPCS: 59025

== ENCOUNTER 2024-04-18 00:17 | Emergency (ER) | payer BC, MEDICAID, SELFPAY ==
[2024-04-18 00:32] VITALS: BP 129/64; PULSE 78; RESP 18; TEMP 36.3; O2SAT 100; BMI 28.3
--- NOTE | 2024-04-18 02:31 | ED_ITS ---
HPI - Headache General: Chief Complaint: Headache Stated Complaint: Migraine Time Seen by Provider: 04/18/24 02:24 History of Present Illness: 29-year-old female who is 38 weeks pregn ant. She has a history of migraine headache. She presents with a frontal occipital headache, sharp and pounding in nature. She says that she has had headaches daily for the past week or so. She received an injection in my C1 nerve by her primary physician yesterday for this, but pain returned significantly this evening. She was seen in over an obstetrics, where she was noted to have 2 contractions in an hour, and normal blood pressure. She is photosensitive and sound sensitive. She has vomited once. No fever. Related Data Home Medications Medication Instructions Recorded Confirmed Tablet 1 tab PO DAILY 12/20/19 06/13/23 hydrocodone 5 mg-acetaminophen 325 tab 04/18/24 mg tablet Allergies Allergy/AdvReac Type Severity Reaction Status Date / Time No Known Allergies Allergy Verified 04/18/24 00:38 [facility] PFSH: Medical History Migraine No pertinent family history Surgical History No pertinent past surgical history Physical Exam Const: COMMON NORMALS: no acute distress and alert GENERAL APPEARANCE: cooperative and in distress (in pain); not frail appearing HENMT: COMMON NORMALS: normocephalic, atraumatic and Normal external nose present HEAD & SCALP: normocephalic and atraumatic FACE & SINUS: normal facial exam and face symmetric NOSE: Normal external nose present Eye: COMMON NORMALS: Equal, round and reactive pupils present and EOMs intact bilaterally PUPIL: Yes Equal, round and reactive pupils present Neck/C-Spine: GENERAL: Yes trachea midline Chest: CHEST: Yes Symmetrical chest wall rise Resp: COMMON NORMALS: normal respiratory effort, No retractions, No use of accessory muscles and clear to auscultation bilaterally AUSCULTATION: clear to auscultation bilaterally Cardio: COMMON NORMALS: regular rate and regular rhythm RATE: regular rate RHYTHM: regular rhythm GI: COMMON NORMALS: Normal to inspection, nondistended, normoactive bowel sounds present Extremity: COMMON NORMALS: no pedal edema Neuro: AYAN COMA SCALE: document GCS findings [place] coma scale eye opening: Spontaneous [place] coma scale verbal response: Orientated Ayan coma scale motor response: Obey commands [place] coma scale total score: 15 SENSORIUM/ORIENTATION: Yes alert CRANIAL NERVES: Yes CN normal except as noted COORDINATION/BALANCE: [id number] test normal SPEECH: speech normal SENSORY EXAM: Yes extremities (intact) MOTOR EXAM: Normal motor muscle tone present throughout COORDINATION: [id number] test normal Psych: COMMON NORMALS: speech normal SPEECH: Yes normal speech Skin: COMMON NORMALS: no rashes or lesions noted GENERAL SKIN EXAM: no rashes or lesions noted Course Vital Signs: Vital signs: Vital Signs Temperature 97.4 F L 04/18/24 00:32 Pulse Rate 68 04/18/24 02:48 Respiratory Rate 16 04/18/24 04:13 Blood Pressure 129/64 04/18/24 00:32 Pulse Oximetry 99 04/18/24 04:13 Oxygen Delivery Me thod Nasal Cannula 04/18/24 04:13 Oxygen Flow Rate 3 04/18/24 04:13 MDM - Headache Medical Decision Making Pain improved after fentanyl, dexamethasone, Reglan, Benadryl. No proteinuria. She is not hypertensive. She wishes to go home. Lab Data Laboratory Results Urine Color Yellow (Yellow) 04/18/24 02:53 Urine Appearance Clear (CLEAR) 04/18/24 02:53 Urine pH 7.0 (5-7) 04/18/24 02:53 Ur Specific [place] 1.008 (1.005-1.030) 04/18/24 02:53 Urine Protein Negative (Negative) 04/18/24 02:53 Urine Glucose (UA) Negative (Normal) 04/18/24 02:53 Urine Ketones Negative (Negative) 04/18/24 02:53 Urine Blood Negative (Negative) 04/18/24 02:53 Urine Nitrate Negative (Negative) 04/18/24 02:53 Urine Bilirubin Negative (Negative) 04/18/24 02:53 Urine Urobilinogen 0.2 mg/dL (Negative) 04/18/24 02:53 Ur Leukocyte Esterase Negative (Negative) 04/18/24 02:53 Urine RBC 0-2 /hpf (0-2) 04/18/24 02:53 Urine WBC 0-5 /hpf (0-5) 04/18/24 02:53 Ur Squamous Epith Cells 0-5 /hpf (0-5) 04/18/24 02:53 Amorphous Sediment Not Reportable 04/18/24 02:53 Urine Bacteria 1+ /hpf (NONE) H 04/18/24 02:53 Hyaline Casts 0-4 /lpf H 04/18/24 02:53 No radiology studies performed this visit Discharge Plan Discharge Patient Disposition: Home Clinical Impression: Migraine Condition: Stable Prescriptions: No Action Tablet tablet 1 tab PO DAILY hydrocodone-acetaminophen 5-325 mg tablet Discharge Orders: Discharge ED (Routine); Ordered 04/18/24 Ordered By: Alexis Manzo Referrals: Rasta Issa MD [Primary Care Provider] - 1-3 days Patient Instructions: Migraine Headache (ED), Opioid Safety, Pain Management Activity Restrictions/Additional Instructions: Return for fever, worsening pain, vomiting liquids, other concerning symptoms. Call your doctor in the morning for follow-up. Coding Level of Care Code ED Technology Consultant for Josiah Ibarra
[2024-04-18] MEDS: sodium chloride 0.9% 500 ML 999 ML IV (02:38)
[2024-04-18] MEDS: metoclopramide 5 mg/mL SDV 2 mL 10 MG IVP (02:39)
[2024-04-18] MEDS: diphenhydrAMINE 50 mg/mL SDV 1mL 25 MG IVP (02:41)
[2024-04-18] MEDS: fentaNYL 50 mcg/mL INJ 2mL IVP ×2 (02:43→04:12)
[2024-04-18 02:48] VITALS: PULSE 68; RESP 22; O2SAT 98
[2024-04-18 03:20] LABS: Bilirubin Urine Negative (Negative); Blood Urine Negative (Negative); Glucose Urine UA Negative (Normal); Ketones Urine Negative (Negative); Leukocyte Esterase Urine Negative (Negative); Nitrate Urine Negative (Negative); Protein Urine Negative (Negative); Specific Gravity, Urine 1.008 (1.005-1.030); Urine Appearance Clear (CLEAR); Urine Color Yellow (Yellow); Urobilinogen Urine 0.2 mg/dL (Negative)
[2024-04-18 03:25] LABS: Add Urine Microscopic? YES; Bacteria Urine 1+ /hpf; Hyaline Casts Urine 0-4 /lpf; RBC Urine 0-2 /hpf (0-2); Squamous Epithelial Cell Urine 0-5 /hpf (0-5); WBC Urine 0-5 /hpf (0-5)
[2024-04-18] MEDS: dexamethasone 4 mg/mL INJ 8 MG IVP (04:08)
[2024-04-18 04:13] VITALS: RESP 16; O2SAT 99
[2024-04-18 04:53] VITALS: PULSE 70; RESP 16; O2SAT 99
== END 2024-04-18 04:57 | disposition home or self-care (01) ==
PROVIDERS: Emergency Provider Emergency Medicine; PCP Family Medicine
DX: G43.909 Migraine, unspecified, not intractable, without status migrainosus (principal); Z3A.38 38 weeks gestation of pregnancy
CPT/HCPCS: 81001; 96361; 96374; 96375; 96376; 99284; J1100; J1200; J2765; J3010; J7040

== ENCOUNTER 2024-04-19 14:04 | Inpatient (IN) | payer BC, MEDICAID, SELFPAY ==
[2024-04-19] VITALS (31 sets, daily range): BP systolic 93–141; BP diastolic 52–91; PULSE 68–106; RESP 16–17; TEMP 36.4–36.8; O2SAT 90–100; BMI 27.9
[2024-04-19] MEDS: acetaminophen 500 mg Tablet 1000 MG PO (10:06)
[2024-04-19] MEDS: fentaNYL 50 mcg/mL INJ 2mL IVP (10:11)
[2024-04-19 10:20] LABS: Basophils % 0.2 %; Eosinophils % 0.2 %; Hematocrit 34.8 % (36-47); Lymphocytes # 1.6 10^3/uL (0.8-4.8); Mean Corpuscular Hemoglobin 30.3 pg (27-33); Mean Corpuscular Volume 91.6 fl (85-98); Mean Platelet Volume 12.4 fL (7.4-10.4); Monocytes # 0.7 10^3/uL (0.2-0.9); Neutrophils # 5.72 10^3/uL (1.8-7.7); Neutrophils % 70.4 %; Nucleated Red Blood Cells % 0 %; Platelet Count 172 10^3/cmm (157-399); Red Cell Distribution Width 14.1 % (12.1-15.1); White Blood Count 8.14 10^3/uL (3.29-11.43)
[2024-04-19] MEDS: lactated ringers 1,000 ML 999 ML IV (10:35)
[2024-04-19 10:54] LABS: Amphetamines Screen Urine Negative (Negative); Barbiturates Screen Urine Negative (Negative); Benzodiazepines Screen Urine Negative (Negative); Cocaine Screen Urine Negative (Negative); Opiate Screen Urine Positive (Negative); PCP Screen Urine Negative (Negative); THC Screen Urine Negative (Negative)
[2024-04-19] MEDS: ROPivacaine syringe 100 MG/50 ML SYRINGE 13 MG EPIDURAL (11:50)
--- NOTE | 2024-04-19 11:57 | P.ANESASSM_ITS ---
Pre-Anesthetic Assessment Height/Weight: Height 1.55 m Weight 67.132 kg Temp Pulse Resp BP Pulse Ox 97.5 F L 75 17 123/66 100 04/19/24 10:11 04/19/24 11:55 04/19/24 10:11 04/19/24 11:55 04/19/24 11:53 Preop Diagnosis: labor pain labor epidural Familial anesthetic complications: none Was Beta Cody taken within 24 hours: N/A Was Clonidine taken within 24 hours: N/A Last Intake: 07:30 Social No alcohol and No tobacco Exam alert and oriented x 3 Airway Submandibular: within normal limits Cervical ROM: within normal limits Mallampati: Class II Dentition: full History/ROS No significant complaints Neuropsych Headache Anesthetic Plan ASA status: 2 Anesthesia: Anesthesia Evaluation and Regional (specify below) Medications/Allergies Home Medications Medication Instructions Recorded Confirmed Last Taken Type Tablet 1 tab PO DAILY 12/20/19 04/19/24 12/19/19 History 0700 hydrocodone 5 mg-acetaminophen 325 1 tab PO Q4H PRN Migraine Headache 04/18/24 04/19/24 04/17/24 History mg tablet Allergies Allergy/AdvReac Type Severity Reaction Status Date / Time No Known Allergies Allergy Verified 04/18/24 00:38 Current Medications Generic Name Dose Route Start Last Admin Trade Name Freq PRN Reason Stop Dose Admin Fentanyl 25 - 100 mcg 04/19/24 09:23 04/19/24 10:11 Fentanyl 50 Mcg/Ml Inj 2ml IVP 25 mcg Q1H PRN Administration SEVERE PAIN PFSH Anesthesia Medical History Migraine No pertinent family history Surgical History No pertinent past surgical history Female Reproductive History : 2 Data Anesthesia 04/19/24 09:45 Short CBC 04/19/24 Range/Units 09:45 WBC 8.14 (3.29-11.43) 10^3/uL Hgb 11.50 (11.27-16.99) g/dL Hct 34.8 L (36-47) % MCV 91.6 (85-98) fl Plt Count 172 (157-399) 10^3/cmm Neut % (Auto) 70.4 % Neut # (Auto) 5.72 (1.8-7.7) 10^3/uL Blood Bank 04/19/24 09:45 Blood Type O Negative Rho(D) Type Rh negative Antibody Screen Negative Cardiac Studies: 2 No Data to Display
--- NOTE | 2024-04-19 11:59 | ANES.PROC ---
Anesthesia Procedures Procedure/Date: 04/19/24 Epidural: Time Out Performed: Yes Consents Signed: Procedure Consent Consent: from patient, risks and benefits reviewed and patient agrees to proceed Lumbar Level: L3-L4 Epidural position: sitting Epidural procedure: sterile prep of area, 1% lidocaine to numb the area, 18 g needle, negative for paresthesia passed, neg for paresthesia, test dose given, 1.5% xylocaine 1:200k epi, placed PCEA, no systemic response, sterile dressing applied, L.U.D. no apparent complications and 0.2% Ropiavacaine @ mls/hr (13) Additional Comments: YAJAIRA at 5, taped at 12. negative heme/CSF upon aspiration. tolerated well. easy placement.
[2024-04-19] MEDS: ondansetron 2 mg/ML SDV 2 mL 4 MG IVP (13:04)
--- NOTE | 2024-04-19 14:05 | PM.OPHPUD ---
Labor & Delivery H&P Update Date of Procedure: April 19, 2024 Date H&P Performed: 04/16/24 Admission Diagnosis: 29-year-old 2 para 1-0-0-1 at 38 weeks estimated gestational age presenting in active labor Preop diagnosis: labor pain Other information: The patient has had a relatively unremarkable . Her blood type is O-. Her antibody screen was negative. She was THC positive. She passed the glucose screen. She is rubella immune. She is GBS negative. The remainder of her infectious disease profile is within normal limits. Related Problem List Diagnoses (1) 38 weeks gestation of : A&P Assessment and plan (1) 38 weeks gestation of : I anticipate routine labor and vaginal delivery Status: Acute
--- NOTE | 2024-04-19 14:05 | PM.DELIVERY ---
Delivery Note: Date of delivery: April 19, 2024 Pre-delivery diagnoses: 29-year-old 2 para 1-0-0-1 at 38 weeks estimated gestational age presenting in active labor Post-delivery diagnoses: DELIVERY: The patient progressed to complete without difficulty. She delivered a male with a weight of 3090 g with Apgars of 8, 9. The baby was delivered from the vertex positiond and placed on the mother's abdomen. The cord was then clamped and cut. There was no nuchal cord. There was no meconium. The placenta and 3 vessel cord were delivered intact shortly thereafter. The perineum and vaginal vault were carefully examined. No lacerations were noted. Both the mother and the baby were in stable condition. Delivering Physician: Kleber Issa Estimated blood loss (mL): 100 History History History 2 Term 1 Miscarriages/Ectopic Living Children 1 A&P Assessment and plan (1) Vaginal delivery: I anticipate routine care (2) 38 weeks gestation of : Coding Level of Care Code Acute Code for Chg Fwd Diagnoses Vaginal delivery O80 38 weeks gestation of Z3A.38
[2024-04-19] MEDS: benzocaine-menthol 78 gm Canister 1 SPRAY TOPICAL (15:47)
[2024-04-19] MEDS: ibuprofen 800 mg tablet PO ×2 (15:47→21:40)
[2024-04-19] MEDS: lanolin oint 7 gm 1 APPLIC TOPICAL (15:47)
[2024-04-19] MEDS: HYDROcodone-acetaminophen 5-325 mg Tablet PO (16:49)
[2024-04-19] MEDS: docusate sodium 100 mg Capsule PO (18:31)
[2024-04-20] MEDS: HYDROcodone-acetaminophen 5-325 mg Tablet PO ×2 (01:31→08:54)
[2024-04-20 03:45] VITALS: BP 110/70; PULSE 75; TEMP 36.6; TEMP 36.7; O2SAT 98
[2024-04-20 04:48] LABS: Hematocrit 29.9 % (36-47); Mean Corpuscular HGB Conc 32.8 g/dL (30-55); Mean Corpuscular Hemoglobin 29.8 pg (27-33); Mean Corpuscular Volume 90.9 fl (85-98); Mean Platelet Volume 11.8 fL (7.4-10.4); Platelet Count 144 10^3/cmm (157-399); Red Blood Count 3.29 10^6/uL (3.85-5.65); Red Cell Distribution Width 13.7 % (12.1-15.1); White Blood Count 8.87 10^3/uL (3.29-11.43)
--- NOTE | 2024-04-20 08:00 | ANE.PACU2 ---
Inpatient post-anesthesia follow up: Airway intact: Yes Vital signs: Temperature 97.9 F Pulse Rate 83 Respiratory Rate 15 Blood Pressure 122/79 Pulse Oximetry 98 Oxygen Delivery Me thod Room Air Oxygen Flow Rate Fraction of Inspir ed Oxygen Hydration adequate: Yes Nausea and vomiting: No Pain level: 1 Mental status: Baseline Epidural Start/End: Epidural Start Date: 04/19/24 Epidural Start Time: 11:38 Epidural End Date: 04/19/24 Epidural End Time: 17:30
--- NOTE | 2024-04-20 08:50 | PM.OBGYDC ---
Discharge Providers [employer]LEY [employer]ACH [employer]IVER Date of Admission: 04/19/24 14:04 Date of Discharge: 05/01/24 Attending Provider at Admission: Rasta Issa MD Attending Provider at Discharge: Rasta Issa MD Primary Care Provider: Rasta Issa MD Reason for Visit Reason for Visit: CTX Hospital Course Hospital Course The patient presented to the hospital in active labor. She had an unremarkable labor. Her delivery was also unremarkable. Her course was unremarkable as well. Her bleeding was within normal limits. Her pain was well-controlled. She had had a headache, which resolved after her baby delivered. Information Peripartum Data: Delivery Method: Vaginal Physical Exam Narrative: The patient is alert. She appears comfortable. Her heart has a regular rate and rhythm with no murmurs appreciated. Lungs are clear to auscultation bilaterally. Her fundus is firm and below the umbilicus. Urinary Catheter Management: Reilly: Cath Placed During This Visit: yes, but has since been removed by the nurse Reason for Continuing Indwelling Catheter: Decision to DC Catheter Urinary Catheter Date of Insertion: 04/19/24 Urinary Catheter Time of Insertion: 12:45 Date Urinary Catheter Removed: 04/19/24 Time Urinary Catheter Discontinued: 13:37 History History History 2 Term 1 Miscarriages/Ectopic Living Children 1 Discharge Data Studies Completed and Pending Laboratory Results WBC 8.87 10^3/uL (3.29-11.43) 04/20/24 04:00 RBC 3.29 10^6/uL (3.85-5.65) L 04/20/24 04:00 Hgb 9.80 g/dL (11.27-16.99) L 04/20/24 04:00 Hct 29.9 % (36-47) L 04/20/24 04:00 MCV 90.9 fl (85-98) 04/20/24 04:00 MCH 29.8 pg (27-33) 04/20/24 04:00 MCHC 32.8 g/dL (30-55) 04/20/24 04:00 RDW 13.7 % (12.1-15.1) 04/20/24 04:00 Plt Count 144 10^3/cmm (157-399) L 04/20/24 04:00 MPV 11.8 fL (7.4-10.4) H 04/20/24 04:00 Neut % (Auto) 70.4 % 04/19/24 09:45 Lymph % (Auto) 20.0 % 04/19/24 09:45 [place] % (Auto) 8.0 % 04/19/24 09:45 Eos % (Auto) 0.2 % 04/19/24 09:45 Baso % (Auto) 0.2 % 04/19/24 09:45 Neut # (Auto) 5.72 10^3/uL (1.8-7.7) 04/19/24 09:45 Lymph # (Auto) 1.6 10^3/uL (0.8-4.8) 04/19/24 09:45 [place] # (Auto) 0.7 10^3/uL (0.2-0.9) 04/19/24 09:45 Eos # (Auto) 0.0 10^3/uL (0.0-0.8) 04/19/24 09:45 Baso # (Auto) 0.0 10^3/uL (0.0-0.1) 04/19/24 09:45 Nucleated RBC % (auto) 0 % 04/19/24 09:45 Nucleated RBCs # 0.0 /100WBC 04/19/24 09:45 Urine Opiates Screen Positive ng/mL (Negative) H 04/19/24 09:00 Ur Barbiturates Screen Negative ng/mL (Negative) 04/19/24 09:00 Ur Phencyclidine Scrn Negative ng/mL (Negative) 04/19/24 09:00 Ur Amphetamines Screen Negative ng/mL (Negative) 04/19/24 09:00 U Benzodiazepines Scrn Negative ng/mL (Negative) 04/19/24 09:00 Urine Cocaine Screen Negative ng/mL (Negative) 04/19/24 09:00 U Marijuana (THC) Screen Negative ng/mL (Negative) 04/19/24 09:00 Blood Type O Negative 04/19/24 09:45 Rho(D) Type Rh negative 04/19/24 09:45 Antibody Screen Negative 04/19/24 09:45 Vitals Last Vital Signs Temp 98.0 F 04/20/24 03:45 Pulse 75 04/20/24 03:45 Resp 16 04/19/24 18:45 BP 110/70 04/20/24 03:45 Pulse Ox 98 04/20/24 03:45 O2 Del Method Room Air 04/20/24 03:45 Results Labs OB ([facility]): Obstetrics US 09/26/23 Blood Type O Negative 04/19/24 Antibody Screen Negative 04/19/24 Hct 29.9 % (36-47) L 04/20/24 Hgb 9.80 g/dL (11.27-16.99) L 04/20/24 Rho(D) Type Rh negative 04/19/24 Plt Count 144 10^3/cmm (157-399) L 04/20/24 Ser , Semi-Qnt 71368.00 mIU/mL 09/26/23 Urine Opiates Screen Positive ng/mL (Negative) H 04/19/24 Ur Barbiturates Screen Negative ng/mL (Negative) 04/19/24 Ur Phencyclidine Scrn Negative ng/mL (Negative) 04/19/24 Ur Amphetamines Screen Negative ng/mL (Negative) 04/19/24 U Benzodiazepines Scrn Negative ng/mL (Negative) 04/19/24 Urine Cocaine Screen Negative ng/mL (Negative) 04/19/24 U Marijuana (THC) Screen Negative ng/mL (Negative) 04/19/24 Discharge Plan Discharge Patient Disposition: Home Condition: Stable Prescriptions: New ibuprofen 800 mg Tablet 800 mg PO TID PRN (Reason: Pain, Moderate) Qty: 90 0RF amitriptyline 25 mg tablet 25 mg PO BID Qty: 60 0RF Continued Tablet tablet 1 tab PO DAILY hydrocodone-acetaminophen 5-325 mg tablet 1 tab PO Q4H PRN (Reason: Migraine Headache) Discharge Orders: Discharge Order (Routine); Ordered 04/20/24 Ordered By: Rasta Issa Referrals: Rasta Issa MD [Primary Care Provider] - 04/26/24 9:40 am ( * Your appointment is on Friday at 9:40am. 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
[2024-04-20] MEDS: docusate sodium 100 mg Capsule PO (08:54)
[2024-04-20] MEDS: ibuprofen 800 mg tablet PO (08:54)
[2024-04-20] MEDS: PRENATAL VIT NO.130/IRON/FOLIC 1 EACH TABLET PO (08:54)
[2024-04-20 10:27] VITALS: BP 116/72; PULSE 79; RESP 16; TEMP 36.6; TEMP 36.7; O2SAT 98
[2024-04-20 15:40] VITALS: BP 122/79; PULSE 83; RESP 15; TEMP 36.6; O2SAT 98
== END 2024-04-20 15:55 | disposition home or self-care (01) | DRG 807 ==
LOC: OPOB 14:04 → OBGYN 14:04
PROVIDERS: Admitting Provider Family Medicine; PCP Family Medicine; Visit Provider Family Medicine
DX: O80 Encounter for full-term uncomplicated delivery (principal); Z37.0 Single live birth; Z3A.38 38 weeks gestation of pregnancy
CPT/HCPCS: 36415; 51702; 59025; 59409; 80306; 85025; 85027; 86850; 86900; 96374; 99211; J2405; J2795; J3010; J7120

== ENCOUNTER 2024-08-31 06:50 | Day surgery (SDC) | payer BC, MEDICAID, SELFPAY ==
[2024-08-31] VITALS (10 sets, daily range): BP systolic 101–129; BP diastolic 62–83; PULSE 62–74; RESP 14–20; TEMP 36.4–36.7; O2SAT 96–100; BMI 24.0
--- NOTE | 2024-08-31 00:48 | W.PM.OPSFHP ---
Same Day Surgery H&P Indication for Procedure/HPI DATE OF PROCEDURE: August 31, 2024 CHIEF COMPLAINT/INDICATIONFOR SURGICAL PROCEDURE: desires permanent sterilization PREOP DIAGNOSIS: desires permanent sterilization PLANNED PROCEDURE: Operation Date: 08/31/24 08:15 Proposed Procedures p Laparoscopic bilateral Salpingectomy 97815, Z30.2(Bilateral) - Ariel Whiting MD 29 y.o. desires permanent sterilization Medications/Allergies* Allergies/Adverse Reactions Allergy/AdvReac Type Severity Reaction Status Date / Time No Known Allergies Allergy Verified 07/19/24 07:46 Pertinent History/Comorbid Conditions* Medical History (Updated 07/31/24 @ 23:31 by Ariel Whiting MD) Migraine No pertinent family history Surgical History (Updated 07/11/21 @ 14:09 by SOUTH Mckoy) No pertinent past surgical history Family History (Updated 07/19/24 @ 08:18 by Shanelle Barnhart) Colon cancer Grandfather Hypertension Grandmother Denies family history of Ovarian cancer Prostate cancer Diabetes Heart disease Hyperlipidemia Breast cancer Uterine cancer Thyroid disease Stroke Social History Smoking and tobacco/nicotine status: former use of tobacco/nicotine Pertinent Exam Findings alert, oriented x 3, clear to auscultation bilaterally and regular rate & rhythm Recommendations Surgery/Procedure today Coding Level of Care Code Acute Code for Chg Fwd
[2024-08-31] MEDS: sodium chloride 0.9% 1,000 ML 30 ML IV (07:19)
--- NOTE | 2024-08-31 07:29 | ANES.PREANE2 ---
Pre-Anesthetic Assessment Height/Weight: Height 1.55 m Weight 57.606 kg Temp Pulse BP Pulse Ox O2 Del Method 98.0 F 65 119/69 96 Room Air 08/31/24 07:10 08/31/24 07:10 08/31/24 07:10 08/31/24 07:10 08/31/24 07:10 Preop Diagnosis: desires permanent sterilization Operation Date: 08/31/24 08:15 Proposed Procedures p Laparoscopic bilateral Salpingectomy 47802, Z30.2(Bilateral) - Ariel Whiting MD Familial anesthetic complications: None Was Beta Cody taken within 24 hours: N/A Was Clonidine taken within 24 hours: N/A Last intake: Intake Last Liquid Date 08/30/24 Last Liquid Time 23:00 Last Solid Date 08/30/24 Last Solid Time 20:00 Social No alcohol and No tobacco Exam alert, oriented x 3, clear to auscultation bilaterally and regular rate & rhythm Airway Mallampati: Class I Dentition: chipped Neuropsych Headache Anesthetic Plan ASA status: 1 Anesthesia: General Risk of > 500 ml blood loss (7ml/kg in children): No Medications/Allergies Home Medications ?Medication ?Instructions ?Recorded ?Confirmed ?Last Taken ?Type amitriptyline 25 mg tablet 25 mg PO BID #60 tabs 04/20/24 08/31/24 08/30/24 Rx ibuprofen 800 mg tablet 800 mg PO TID PRN Pain, Moderate 04/20/24 08/31/24 Unknown Rx #90 tabs medroxyprogesterone 150 mg/mL 150 mg IM .every 3 months #1 mL 07/19/24 08/31/24 07/12/24 Rx intramuscular suspension (Depo-Provera) Allergies Allergy/AdvReac Type Severity Reaction Status Date / Time No Known Allergies Allergy Verified 08/31/24 07:06 Current Medications Generic Name Dose Route Start Last Admin Trade Name Freq PRN Reason Stop Dose Admin Sodium Chloride 1,000 mls @ 30 mls/hr 08/31/24 07:00 08/31/24 07:19 Sodium Chloride 0.9% IV 09/01/24 06:59 30 mls/hr .Q24H [place] Administration PFSH Anesthesia Medical History Migraine No pertinent family history Surgical History No pertinent past surgical history Family History (Updated 07/19/24 @ 08:19 by Shanelle Barnhart) Grandfather Colon cancer Grandmother Hypertension Denies family history of Ovarian cancer Prostate cancer Diabetes Heart disease Hyperlipidemia Breast cancer Uterine cancer Thyroid disease Stroke Social History Smoking and tobacco/nicotine status: former use of tobacco/nicotine
[2024-08-31 07:44] LABS: OR HCG Qualitative Urine Negative (Negative)
--- NOTE | 2024-08-31 07:44 | W.PM.OPSUD ---
Surgery/Procedure H&P Update DATE OF PROCEDURE: August 31, 2024 DATE H&P PERFORMED: 08/31/24 H&P UPDATE INFORMATION: I have reviewed H&P completed within last 30 days, I have examined patient prior to procedure and No changes to prior documentation PREOP DIAGNOSIS: desires permanent sterilization PLANNED PROCEDURE: Operation Date: 08/31/24 08:15 Proposed Procedures p Laparoscopic bilateral Salpingectomy 76100, Z30.2(Bilateral) - Ariel Whiting MD
[2024-08-31] MEDS: ondansetron 2 mg/ML SDV 2 mL 4 MG (09:32)
--- NOTE | 2024-08-31 10:15 | P.OP_ITS ---
Operative Report Date of procedure: August 31, 2024 Pre-op diagnosis: desires permanent sterilization Post-op diagnosis: same Post-op findings: normal uterus, tubes, and ovaries Procedure done: laparoscopic bilateral salpingectomy Implants: none Specimens removed/disposition: bilateral fallopian tube segments Surgeon: Ariel Whiting MD Anesthesia: General Estimated blood loss (mL): 5 Complications: none Findings: normal uterus, tubes, and ovaries Condition: stable Disposition: PACU Brief History: 29 y.o. desires permanent sterilization Procedure: Informed consent was obtained. The patient was taken to the OR and placed on the table. General endotracheal anesthesia was induced. The abdomen was then prepped and draped in the usual fashion. A 5 mm subumbilical skin incision was made. A 5 mm trocar with sheath was then inserted into the peritoneal cavity under direct visualization with the laparoscope. After confirming intraperitoneal position, pneumoperitoneum was achieved. Two separate 5 mm incisions were made in the right and left mid- quadrants. 5 mm trocars with sheaths were then inserted into the peritoneal cavity under direct visualization with the laparoscope. The right fallopian tube was then identified to its fimbrial end. Starting at the fimbrial end, the mesosalpinx was then coagulated and cut using the Ligasure. The right fallopian tube was excised and removed via one of the ports. This was sent to pathology. There was no bleeding seen. Similarly, the left fallopian tube was identified to its fimbrial end. The left fallopian tube was excised and removed, sent to pathology. There was no bleeding. All instruments were then removed from the peritoneal cavity after the pneumo peritoneum was allowed to escape. The skin incisions were closed using 3-O chromic in subcuticular fashion. Dermabond was applied. The patient was then placed supine and awakened, taken the the PACU in good condition. Postop condition: stable EBL: 5 cc Complications: none Sponge, needles, and instruments counts correct x two
--- NOTE | 2024-08-31 10:45 | ANE.PACU2 ---
Inpatient post-anesthesia follow up: Airway intact: Yes Vital signs: Temperature 97.7 F Pulse Rate 71 Respiratory Rate 17 Blood Pressure 114/77 Pulse Oximetry 100 Oxygen Delivery Me thod Room Air Oxygen Flow Rate Fraction of Inspir ed Oxygen Hydration adequate: Yes Nausea and vomiting: No Pain level: 1 Mental status: Baseline
== END 2024-08-31 10:48 | disposition home or self-care (01) ==
PROVIDERS: Anesthesiology; PCP Family Medicine; Visit Provider Obstetrics & Gynecology
PROC: (CPT 58661; principal; 2024-08-31 08:05)
DX: Z30.2 Encounter for sterilization (principal); Z87.891 Personal history of nicotine dependence
CPT/HCPCS: 58661; 81025; 88302; A4216; J0131; J1100; J1200; J1885; J2250; J2405; J2704; J3010; J3490; J7030; J9999